=== PATIENT | female | born 1945 | race Caucasian/White ===

== ENCOUNTER 2022-03-14 06:41 | Day surgery (SDC) | payer MEDICARE, OTHER ==
[~2022-03-14] VITALS: Ht 160 cm; Wt 127.4 kg
[~2022-03-14 06:41] MED LIST: AFRIN15 M6; ATOR20 PO; Allopurinol100 MG PO; CHOL10002 PO; CYAN1000 PO; CYCL10 PO; ESOM20 PO; ESTR1 PO; FAMO20 PO; FURO20 PO; GABA100 PO; HYDACE5 PO; LEVSOD50 PO; LOSA50 PO; LOVA20 PO; METO50ER PO; MUPIROCIN1 G1 TOP; NYST100TC TOP; NYSTATIN15 GM; OLME20 PO; OLME40 PO; PANT40 PO; PARI1 PO; PIRO20 PO; POTA10T PO; TUMS500 MG PO; Tylenol325 MG PO; VITAMIN B125000 MC1 PO; Vitamin D1000 UNI1 PO; WARF2.5 PO
--- NOTE | 2022-03-14 07:46 | NUR ---
Ambulatory in Day Surgery History, Chart, Medications and Allergies reviewed before start of procedure. Pre-Op teaching done. Pt verbalizes understanding.
--- NOTE | 2022-03-14 08:36 | NUR ---
03/14/22 0836 Michelle Gil History, Chart, Medications and Allergies reviewed before start of procedure. Patient confirms NPO status and agrees with scheduled surgery. 3-LEAD EKG REVIEWED WITH PHYSICIAN PRIOR TO START OF PROCEDURE. MONITOR INTACT WITH CONTINUOUS PULSE OXIMETRY AND INTERMITTENT BP. DR. BRADSHAW PROVIDING ANESTHESIA CARE.
--- NOTE | 2022-03-14 09:18 | NUR ---
Discharge instructions reviewed with patient. Patient verbalizes understanding. Copy given to patient to take home. Patient States Post-Procedure ride home has been arranged. Discharged via wheelchair to private car for ride home.
== END 2022-03-14 09:36 | disposition home or self-care (01) ==
LOC: ORSCMMR 06:41 → ORD 08:45 → ORSCMMR 08:45
PROVIDERS: Surgery
PROC: 0DJD8ZZ Inspection of Lower Intestinal Tract, Via Natural or Artificial Opening Endoscopic (ICD-10-PCS; principal; 2022-03-14 08:45)
DX: Z12.11 Encounter for screening for malignant neoplasm of colon (principal); Z86.010 Personal history of colon polyps; Z80.0 Family history of malignant neoplasm of digestive organs; I12.9 Hypertensive chronic kidney disease with stage 1 through stage 4 chronic kidney disease, or unspecified chronic kidney disease; N18.30 Chronic kidney disease, stage 3 unspecified; K21.9 Gastro-esophageal reflux disease without esophagitis; E66.01 Morbid (severe) obesity due to excess calories; Z68.42 Body mass index [BMI] 45.0-49.9, adult; Z79.899 Other long term (current) drug therapy
CPT/HCPCS: J2704; J7120

== ENCOUNTER → 2023-03-19 | Outpatient (CLI) | payer MEDICARE, OTHER ==
[2023-03-19 15:22] LABS: International Normalized Ratio 2.89; Prothrombin Time Results 28.6 Sec (9.7-11.5)
== END | disposition home or self-care (01) ==
LOC: LAB 08:30 → LAB SHORT 08:30
PROVIDERS: Family Medicine
DX: Z09 Encounter for follow-up examination after completed treatment for conditions other than malignant neoplasm (principal); Z86.718 Personal history of other venous thrombosis and embolism
CPT/HCPCS: 85610